=== PATIENT | male | born 1980 | race Hispanic/Latino ===

== ENCOUNTER 2020-07-08 12:12 | Emergency (ER) | payer BC, SELFPAY ==
[2020-07-08] VITALS (10 sets, daily range): BP systolic 150–160; BP diastolic 92–111; PULSE 80–95; RESP 17–27; TEMP 36.1; O2SAT 97–100
--- NOTE | ~2020-07-08 | XR_ITS ---
EXAMINATION: XR chest 2V DATE: 07/08/2020 12:45 INDICATION: Chest pain. TECHNIQUE: Frontal and lateral views of the chest were obtained. COMPARISON: None. FINDINGS: The chest demonstrates clear lungs without pneumonia, pleural effusion, or pneumothorax. Th e heart size is normal. IMPRESSION: 1. No acute cardiopulmonary disease. Reviewed, dictated and finalized at location A.
--- NOTE | 2020-07-08 12:27 | ECG_ITS ---
Measurements Intervals [place] Rate: 97 P: 27 DE: 150 QRS: 63 QRSD: 115 T: -3 QT: 324 QTc: 413 Interpretive Statements SINUS RHYTHM DELAYED PRECORDIAL R/S TRANSITION CONSIDER INFERIOR INFARCT, AGE INDETERMINATE BASELINE WANDER- I, II ABNORMAL ECG Electronically Signed On 07-08-2020 12:38:28 CDT by Jacky Pinon D.O.
[2020-07-08] MEDS: ASPIRIN 81 MG CHEWABLE TABLET 324 MG PO (12:41)
[2020-07-08 12:46] LABS: Basophils Percent Auto 0.3 % (0.2-1.2); Eosinophils Percent Auto 0.1 % (0-4.4); Hematocrit 51.1 % (42.0-52.0); Hemoglobin 18.5 g/dL (14.0-18.0); Immature Granulocyte Absolute 0.06 K/mm3 (0.00-0.031); Immature Granulocyte Percent A 0.4 % (0-0.5); Lymphocytes Percent Auto 15.5 % (18.3-44.2); Mean Corpuscular HGB Conc 36.2 g/dl (32-36); Mean Corpuscular Hemoglobin 31.8 pg (26-34); Mean Corpuscular Volume 87.8 fl (80-100); Mean Platelet Volume 11.1 fl (7.4-10.4); Monocytes Percent Auto 6.9 % (2.6-8.5); Neutrophils Absolute Auto 10.9 K/mm3 (1.3-6.7); Neutrophils Percent Auto 76.8 % (45.5-73.1); Platelet Count Result 284 k/mm3 (150-375); Red Blood Count 5.82 M/mm3 (4.6-6.20); Red Cell Distribution Width 11.9 % (11.5-14.5); White Blood Count 14.2 K/mm3 (4.5-10.0)
[2020-07-08 12:55] LABS: Prothrombin Time 12.8 Seconds (11.1-14.7)
[2020-07-08 12:56] LABS: Partial Thromboplastin Time 29.4 SECONDS (22.3-36.8)
[2020-07-08 12:58] LABS: Anion Gap 12 mmol/L (8-16); Blood Urea Nitrogen 16 mg/dL (9-20); Calcium 9.7 mg/dL (8.4-10.2); Carbon Dioxide 25 mmol/L (22-30); Chloride 96 mmol/L (98-107); Estimated CRCL calculation 662 ml/min; Estimated Glomerular Filt Rate > 60; Glucose 115 mg/dL (75-110); Potassium 3.5 mmol/L (3.4-5.0); Sodium 133 mmol/L (137-145)
[2020-07-08 13:10] LABS: Troponin I < 0.012 ng/mL (0.000-0.034)
--- NOTE | 2020-07-08 14:34 | ED.GENADULT ---
HPI - General Adult General Chief complaint: Chest Pain Stated complaint: weak Time Seen by Provider: 07/08/20 12:35 Source: patient and family Mode of arrival: ambulatory Limitations: no limitations History of Present Illness HPI narrative: 40-year-old male Generally in good health Reports that 2 nights ago he had a pain in his left back and chest when he went to bed but it was gone by the morning However later in the day yesterday he started having muscle aches fatigue chills and a subjective fever Really no cough, no shortness of breath, has some nausea but no abdominal pain and no diarrhea, and no urinary symptoms Related Data Home Medications Medication Instructions Recorded Confirmed chlorthalidone 07/08/20 methylprednisolone mg 07/08/20 07/08/20 Allergies Allergy/AdvReac Type Severity Reaction Status Date / Time No Known Allergies Allergy Verified 07/08/20 12:27 Review of Systems Review of Systems: All systems reviewed & are unremarkable except as noted in HPI and below Constitutional: Constitutional: Reports chills, Reports fatigue, Reports fever(s), Denies headache(s) and Reports weakness Eyes: Eyes: Denies change in vision and Denies other visual disturbances ENT: Denies headache(s), Denies epistaxis, Denies nasal congestion and Denies sore throat Cardiovascular: Cardiovascular: Denies chest pain, Denies leg edema, Denies palpitations and Denies dyspnea Respiratory: Respiratory: Reports cough, Denies dyspnea and Denies wheezing Gastrointestinal: Gastrointestinal: Denies abdominal pain, Denies diarrhea, Reports nausea and Denies vomiting Genitourinary: Genitourinary: Denies hematuria, Denies dysuria and Denies urinary frequency Musculoskeletal: Musculoskeletal: Reports myalgias, Denies deformity, Denies arthralgias, Denies joint swelling, Denies muscle weakness and Denies numbness Integumentary/Breasts: Skin/Breast: Denies rash, Denies unusual bruising and Denies wounds Neurologic: Denies Abnormal speech present, Denies headache(s), Denies focal weakness, Denies numbness and Reports weakness Psychiatric: Psychiatric: Reports no additional psychiatric complaints Endocrine: Endocrine: Reports fatigue and Denies palpitations Hematologic/Lymphatic: Hematologic/Lymphatic: Denies easy bleeding and Denies easy bruising Allergic/Immunologic: Allergic/Immunologic: Denies wheezing Exam Const: General: no acute distress, well developed and awake Nutritional Appearance: well nourished Orientation/consciousness: patient oriented x3 (alert) Limitations: no limitations HENMT: Head: normocephalic and atraumatic Ears: external ears normal General nose exam: No nasal discharge present and no epistaxis Face and sinus: face symmetric Mouth: Yes Normal oral and palatal mucosa present and Yes moist mucous membranes Eyes: Conjunctivae: conjunctivae normal Sclera: sclerae normal EOM: EOMs intact bilaterally Neck: Neck: normal visual inspection, no lymphadenopathy, no meningeal signs, supple and no JVD Chest: Chest palpation & inspection: deferred Resp: Effort & Inspection: normal respiratory effort Auscultation: clear to auscultation bilaterally, no rales, no rhonchi, no wheezes and other (BS =) Cardio: Rate: regular rate Rhythm: regular rhythm Heart sounds: no gallops and no murmurs GI: Inspection: normal to inspection and non-distended GI Palp: Yes Soft to palpation, No Tenderness to palpation present (GI) and No Guarding due to palpation present (GI) : General: Yes no CVA tenderness Back/Spine/Pelvis: Back: no CVA tenderness Thoracic/Lumbar Spine: thoracic and lumbar spine normal to inspection Skin: General skin exam: normal color and no rashes or lesions noted Neuro: General: patient oriented x3 (alert), moves all extremities and no focal motor deficits Cranial nerves: Yes facial symmetry Speech: normal speech and No Abnormal speech present Motor exam (neuro): Motor abnormalities not
[2020-07-09 12:44] LABS: SARS-CoV-2 RNA PCR Negative
== END 2020-07-08 15:14 | disposition home or self-care (01) ==
PROVIDERS: Emergency Provider Emergency Medicine
DX: U07.1 COVID-19 (principal)
CPT/HCPCS: 36415; 71046; 80048; 84484; 85025; 85610; 85730; 87635; 93005; 99284; A9270; C9803; U0003

== ENCOUNTER 2021-01-14 07:09 | Emergency (ER) | payer BC, SELFPAY ==
--- NOTE | ~2021-01-14 | XR_ITS ---
EXAMINATION: XR foot LT 2V EXAM DATE: 01/14/2021 08:14 INDICATION: pain base 5th mt Lt foot, twisted foot last p.m. . Initial encounter. TECHNIQUE: Frontal and lateral projections of the left foot. There is no prior study for comparison . FINDINGS: There are no acute left foot fractures or dislocations identified. There is no subcutaneou s gas. The soft tissue is unremarkable. There are no radiopaque foreign bodies. IMPRESSION: 1. XR foot LT 2V exam without acute osseous findings. Reviewed, dictated and finalized at location D.
--- NOTE | ~2021-01-14 | XR_ITS ---
EXAMINATION: XR ankle LT min 3V DATE: 01/14/2021 07:51 INDICATION: Left ankle pain TECHNIQUE: Anteroposterior, lateral, mortise, and additional oblique view of the ankle were obtained. COMPARISON: None. FINDINGS: There is no fracture, dislocation, or subluxation. The bones, soft tissues, and joint space s are normal. IMPRESSION: 1. No acute osseous abnormality. Reviewed, dictated and finalized at location A.
[2021-01-14 07:13] VITALS: BP 144/99; PULSE 77; RESP 18; TEMP 36.4; O2SAT 97
[2021-01-14] MEDS: IBUPROFEN 400 MG TABLET 800 MG PO (08:54)
--- NOTE | 2021-01-14 08:55 | ED.LOWEXIN ---
HPI - Extremity Injury (Lower) General Chief Complaint: Extremity Injury, Lower Stated Complaint: Left Ankle Injury Time Seen by Provider: 01/14/21 07:17 Source: patient Mode of arrival: ambulatory Limitations: no limitations History of Present Illness HPI Narrative: 40-year-old male Here for evaluation of a left ankle injury He was coming down steps at his house this morning and stepped on his daughter's shoe which had been left at the bottom of the stairs and inverted his left ankle He felt like it popped There is pain, mild swelling, but he is able to bear weight and ambulate Nothing else injured Related Data Home Medications Medication Instructions Recorded Confirmed chlorthalidone 07/08/20 methylprednisolone mg 07/08/20 07/08/20 Allergies Allergy/AdvReac Type Severity Reaction Status Date / Time No Known Allergies Allergy Verified 01/14/21 07:17 Review of Systems Musculoskeletal: Musculoskeletal: Denies back pain, Reports arthralgias and Reports joint swelling Neurologic: Denies numbness and Denies weakness Exam Const: General: healthy appearing, no acute distress and alert Orientation/consciousness: patient oriented x3 HENMT: Head: normal to inspection Eyes: Conjunctivae: conjunctivae normal EOM: EOMs intact bilaterally Resp: Effort & Inspection: normal respiratory effort and not labored Skin: General skin exam: normal color Neuro: General: patient oriented x3 Speech: normal speech Extrem: Other: Left ankle with very mild swelling laterally, no tenderness around the distal fibula either anteriorly or posteriorly, only tenderness is localized to the base of the fifth metatarsal Course Vital Signs Vital signs: Vital Signs Temperature 36.4 C L 01/14/21 07:13 Pulse Rate 77 01/14/21 07:13 Respiratory Rate 18 01/14/21 07:13 Blood Pressure 144/99 H 01/14/21 07:13 Pulse Oximetry 97 01/14/21 07:13 Temperature 36.4 C L 01/14/21 07:13 Pulse Rate 77 01/14/21 07:13 Respiratory Rate 18 01/14/21 07:13 Blood Pressure 144/99 H 01/14/21 07:13 Pulse Oximetry 97 01/14/21 07:13 MDM - Extremity Injury (Lower) Imaging Data Radiologist's impression: ITS Impressions Ankle X-Ray 01/14/21 07:52 IMPRESSION: 1. No acute osseous abnormality. Foot X-Ray 01/14/21 08:16 IMPRESSION: 1. XR foot LT 2V exam without acute osseous findings. Discharge Plan Discharge Clinical Impression: Ankle sprain and strain Patient Disposition: Home, Self-Care Condition: Stable Instructions: Ankle Sprain (ED) Additional Instructions: If you are going to participate in competitive sports you should wear a sturdy lace up type of ankle brace for the next 2 months Otherwise apply ice three or four times a day, [id number] Advil or Aleve, and you can do activities as tolerated Prescriptions: No Action chlorthalidone 25 mg tablet RF: 0 methylprednisolone 4 mg tablets,dose pack RF: 0 azithromycin [Zithromax Z-Tamir] 250 mg tablet See Rx Instructions .ROUTE .COMPLEX Qty: 6 RF: 0 albuterol sulfate 90 mcg/actuation HFA aerosol inhaler 4 puff inhalation QID PRN (Reason: shortness of breath or wheezing) Qty: 8.5 RF: 0 Follow-up/Referrals: Esvin,Thomas Groves MD [Primary Care Provider] -
== END 2021-01-14 09:08 | disposition home or self-care (01) ==
PROVIDERS: Emergency Provider Emergency Medicine
DX: S96.912A Strain of unspecified muscle and tendon at ankle and foot level, left foot, initial encounter (principal); S93.402A Sprain of unspecified ligament of left ankle, initial encounter; X50.9XXA Other and unspecified overexertion or strenuous movements or postures, initial encounter
CPT/HCPCS: 73610; 73620; 99283; A9270

== ENCOUNTER → 2021-09-12 08:07 | Outpatient (CLI) | payer BC, SELFPAY ==
[2021-09-13 13:55] LABS: SARS-CoV-2 RNA PCR Positive
== END ==
PROVIDERS: PCP Family Medicine; Visit Provider Family Medicine
DX: U07.1 COVID-19 (principal); J02.9 Acute pharyngitis, unspecified
CPT/HCPCS: C9803; U0003; U0005

== ENCOUNTER 2022-07-01 09:40 | Emergency (ER) | payer BC, SELFPAY ==
--- NOTE | ~2022-07-01 | CT_ITS ---
EXAMINATION: CT abdomen pelvis w con INDICATION: Nausea and fever TECHNIQUE: Computed tomographic images of the abdomen and pelvis were obtained after the administrati on of 100 cc of Omnipaque 350 intravenous contrast. The dose-length product (DLP) was 875.56 mGy-cm. Automated exposure control and iterative reconstruction technique were employed. COMPARISON: None available FINDINGS: The lung bases are clear. The heart size is normal. The liver, spleen, pancreas, gallbladde r, and adrenal glands are normal. There is a 1 mm nonobstructing stone of the left kidney. Hypoattenu ating lesions in the kidneys, measuring up to 5 mm on the left, are too small to characterize but lik chris represent cysts. No pathologically enlarged abdominal or pelvic lymph nodes are identified. The a ppendix is normal. There are fat-containing umbilical and bilateral extrarenal hernias. IMPRESSION: 1. No CT correlate for the patient's symptoms. Reviewed, dictated and finalized at location A.
--- NOTE | ~2022-07-01 | XR_ITS ---
EXAMINATION: XR chest 2V DATE: 07/01/2022 10:31 INDICATION: Cough and fever TECHNIQUE: Frontal and lateral views of the chest are obtained COMPARISON: 07/08/2020 FINDINGS: The lungs are free of acute opacities. No pleural effusion or pneumothorax. The cardiomedia stinal silhouette is normal. There is mild thoracic spondylosis. IMPRESSION: 1. No acute cardiopulmonary abnormality. Reviewed, dictated and finalized at location A.
[2022-07-01 09:51] VITALS: BP 137/97; PULSE 92; RESP 14; TEMP 36.9; O2SAT 99
--- NOTE | 2022-07-01 10:24 | ED.FEVER ---
HPI - Fever General Chief Complaint: Fever Stated Complaint: Multiple Complaints Time Seen by Provider: 07/01/22 09:45 History of Present Illness HPI Narrative: Patient is a 42-year-old male with history of hypertension here for evaluation of generalized weakness, body aches, chills, and cough for the past 3 days. Patient's is sick with pneumonia, symptoms came on shortly after he was diagnosed. He has not taken a COVID test. He has been taking ibuprofen [id number] with transient relief of his symptoms. States that he came in today because of the longevity of the symptoms in addition to developing lower abdominal pain and nausea. States that he has not had much to eat or drink over the past 3 days due to low appetite. Patient has not taken his temperature. He is not immunocompromised. Related Data Home Medications Medication Instructions Recorded Confirmed chlorthalidone 25 mg tablet 07/08/20 methylprednisolone 4 mg tablets in mg 07/08/20 07/08/20 a dose pack Allergies Allergy/AdvReac Type Severity Reaction Status Date / Time No Known Allergies Allergy Verified 01/14/21 07:17 Review of Systems Review of Systems: Gen: Reports chills and body aches Eyes: Denies eye pain or visual change ENT: Denies congestion Respiratory: Denies shortness of breath or cough CV: Denies chest pain or palpitations GI: Reports nausea and low appetite. Denies emesis or diarrhea denies burning, urgency, frequency or hematuria Musculoskeletal: Reports body aches. Neuro: Denies numbness, tingling, weakness or focal weakness Skin: Denies rash Except as documented, all other systems reviewed and negative Exam Narrative: APPEARANCE: Uncomfortable appearing. Head: Normocephalic and atraumatic. EYES: PERRLA/EOMI, conjunctivae clear NOSE: No nasal drainage EARS: External ear normal in appearance THROAT: Oropharynx is clear. Mucous membranes are moist. NECK: Supple. No adenopathy, no masses. RESPIRATORY: Crackles in the right lung base. Airway patent, respirations nonlabored. CARDIOVASCULAR: Regular rate and rhythm without murmurs, rubs, or gallops. ABDOMINAL: Normoactive bowel sounds. Soft, nontender, nondistended. No rebound tenderness or guarding. MUSCULOSKELETAL: Extremities are warm and well-perfused. Moves all extremities well. No edema. NEURO: Normal speech. No focal neurologic deficits. SKIN: Skin is warm and dry. No rashes. PSYCHIATRIC: Normal affect/mood. Course Vital Signs Vital signs: Vital Signs Temperature 98.4 F 07/01/22 09:51 Pulse Rate 92 07/01/22 09:51 Respiratory Rate 14 07/01/22 09:51 Blood Pressure 137/97 H 07/01/22 09:51 Pulse Oximetry 99 07/01/22 09:51 Temperature 98.4 F 07/01/22 09:51 Pulse Rate 90 07/01/22 13:26 Respiratory Rate 19 07/01/22 13:26 Blood Pressure 137/97 H 07/01/22 13:26 Pulse Oximetry 97 07/01/22 13:26 MDM - Fever MDM Narrative Medical decision making narrative: 42-year-old male here for evaluation of myalgias, chills, cough and fatigue over the past several days. Positive sick contacts. Here he is uncomfortable appearing but his vital signs are normal. Work-up in the ED significant for leukocytosis to 15.5 and potassium of 2.8. No EKG changes; normal mag. Low potassium likely due to decreased p.o. intake over the past several days. Repleted in the ED. his COVID and flu test are negative. Obtained an abdomen pelvis CT given abd pain and nausea, which did not have any acute findings. Chest x-ray without acute findings, although patient does have crackles on lung exam. Feel pneumonia may be explaining patient's symptoms. He will be discharged with antibiotics to cover for bacterial pneumonia. Does not meet SIRS or sepsis criteria, stable for discharge at this time. He was given return precautions and he voiced understanding. Lab Data Result diagrams: 07/01/22 10:40 07/01/22 10:40 Labs: Lab Re
[2022-07-01] MEDS: ACETAMINOPHEN 500 MG TABLET 1000 MG PO (10:39)
[2022-07-01] MEDS: ONDANSETRON HCL ODT 4 MG TABLET PO (10:40)
[2022-07-01 10:47] LABS: Basophils Percent Auto 0.3 % (0.2-1.2); Eosinophils Percent Auto 0.1 % (0-4.4); Hematocrit 46.7 % (42.0-52.0); Hemoglobin 16.7 g/dL (14.0-18.0); Immature Granulocyte Absolute 0.05 K/mm3 (0.00-0.031); Immature Granulocyte Percent A 0.3 % (0-0.5); Lymphocytes Absolute Auto 1.96 K/mm3 (0.9-3.2); Lymphocytes Percent Auto 12.6 % (18.3-44.2); Mean Corpuscular HGB Conc 35.8 g/dl (32-36); Mean Corpuscular Hemoglobin 31.7 pg (26-34); Mean Corpuscular Volume 88.6 fl (80-100); Mean Platelet Volume 10.7 fl (7.4-10.4); Monocytes Absolute Auto 1.3 K/mm3 (0.1-0.6); Monocytes Percent Auto 8.1 % (2.6-8.5); Neutrophils Absolute Auto 12.2 K/mm3 (1.3-6.7); Neutrophils Percent Auto 78.6 % (45.5-73.1); Platelet Count Result 209 k/mm3 (150-375); Red Blood Count 5.27 M/mm3 (4.6-6.20); Red Cell Distribution Width 12.3 % (11.5-14.5); White Blood Count 15.5 K/mm3 (4.5-10.0)
[2022-07-01 11:02] LABS: Alanine Aminotransferase 48 U/L (6-50); Albumin Level 4.5 g/dL (3.5-5.1); Alkaline Phosphatase 85 U/L (38-126); Anion Gap 14 mmol/L (8-16); Aspartate Amino Transferase 30 U/L (17-59); Bilirubin,Total 1.4 mg/dL (0.2-1.3); Blood Urea Nitrogen 11 mg/dL (9-20); Calcium 9.1 mg/dL (8.4-10.2); Carbon Dioxide 29 mmol/L (22-30); Chloride 94 mmol/L (98-107); Estimated CRCL calculation 116 ml/min; Estimated Glomerular Filt Rate > 60; Glucose 119 mg/dL (65-110); Lipase 91 U/L (23-300); Potassium 2.8 mmol/L (3.4-5.0); Sodium 137 mmol/L (137-145)
--- NOTE | 2022-07-01 11:04 | ECG_ITS ---
Measurements Intervals [place] Rate: 91 P: 17 MA: 141 QRS: 41 QRSD: 138 T: 0 QT: 338 QTc: 417 Interpretive Statements SINUS RHYTHM INTRAVENTRICULAR CONDUCTION DELAY [130+ ms QRS DURATION] COMPARED TO ECG 07/08/2020 12:33:45, NO SIGNIFICANT CHANGE Electronically Signed On 07-01-2022 18:49:52 CDT by Carolina Miguel M.D.
[2022-07-01 11:19] LABS: Magnesium 2.2 mg/dL (1.6-2.3)
[2022-07-01 11:23] LABS: Influenza A QL RT-PCR Negative (Negative); Influenza B QL RT-PCR Negative (Negative); SARS-CoV-2 RNA PCR Negative
[2022-07-01] MEDS: POTASSIUM CHLORIDE 20 MEQ TABLET 40 MEQ PO (11:48)
[2022-07-01 13:26] VITALS: BP 137/97; PULSE 90; RESP 19; O2SAT 97
== END 2022-07-01 13:27 | disposition home or self-care (01) ==
PROVIDERS: Physician Assistant; Emergency Provider Emergency Medicine; PCP Family Medicine
DX: J18.9 Pneumonia, unspecified organism (principal); Z20.822 Contact with and (suspected) exposure to COVID-19; I45.9 Conduction disorder, unspecified
CPT/HCPCS: 36415; 71046; 74177; 80053; 83690; 83735; 85025; 87502; 93005; 99284; A9270; C9803; Q9967; U0003; U0005

== ENCOUNTER 2022-07-24 04:49 | Emergency (ER) | payer BC, SELFPAY ==
--- NOTE | ~2022-07-24 | CT_ITS ---
EXAMINATION: CT abdomen pelvis w con DATE: 07/24/2022 07:44 INDICATION: Low abdominal pain. TECHNIQUE: Computed tomography (CT) of the abdomen and pelvis was performed with 100 mL Omnipaque 350 intravenous contrast. Automated exposure control and iterative reconstruction technique were employe d. The dose-length product was 911.66 mGy-cm. COMPARISON: CT abdomen and pelvis 07/01/2022 FINDINGS: The visualized portions of the lung bases are clear without pneumonia or pleural effusion. The heart size is normal. No pericardial effusion. The liver, gallbladder, spleen, pancreas, adrenal glands, and kidneys are normal. There is diverticulosis of the colon without evidence of diverticulit is. The appendix is normal. There are no dilated loops of bowel. There are no pathologically enlarged lymph nodes. There is no free intraperitoneal fluid. There is mild thoracal lumbar spondylosis. IMPRESSION: 1. No etiology for the patient's symptoms. Reviewed, dictated and finalized at location A. ING MACHINE OPERATOR HELPER
[2022-07-24 04:59] VITALS: BP 133/86; PULSE 81; RESP 13; TEMP 36.3; O2SAT 100
--- NOTE | 2022-07-24 05:23 | ECG_ITS ---
Measurements Intervals [place] Rate: 62 P: 22 ND: 138 QRS: 43 QRSD: 118 T: 14 QT: 363 QTc: 369 Interpretive Statements SINUS RHYTHM MINIMAL Q WAVES- INFERIOR LEADS BASELINE ARTIFACT- I, II, AVR, AVF BORDERLINE ECG COMPARED TO ECG 07/01/2022 11:30:51 NO SIGNIFICANT CHANGES Electronically Signed On 07-24-2022 6:36:58 ADMINISTRATIVE PROFESSIONAL by Jacky Pinon D.O.
--- NOTE | 2022-07-24 05:33 | ED.ABDPAIN ---
HPI - Abdominal Pain General Chief Complaint: Abdominal Pain <Jeanne Tovar MD - Last Filed: 07/24/22 08:53> Stated Complaint: Upper back/chest pain <Jeanne Tovar MD - Last Filed: 07/24/22 08:53> Time Seen by Provider: 07/24/22 05:09 <Jeanne Tovar MD - Last Filed: 07/24/22 08:53> Source: patient and RN notes reviewed <Jeanne Tovar MD - Last Filed: 07/24/22 08:53> Mode of arrival: ambulatory <Jeanne Tovar MD - Last Filed: 07/24/22 08:53> Limitations: no limitations <Jeanne Tovar MD - Last Filed: 07/24/22 08:53> History of Present Illness HPI narrative: This is a 42 year male who presents for evaluation of mid back pain and upper abdominal pain. He states this morning he developed mid back pain and later noticed upper abdominal pain when he started stretching. He describes his abdominal pain as bloating . He denies associated nausea, vomiting, chest pain, sob, or fever/chills. He does admit to drinking 8-10 [place] on sunday night. He denies history of pancreatitis. He rates his pain 03/19. <Jeanne Tovar MD - Last Filed: 07/24/22 08:53> Related Data Home Medications: Home Medications Medication Instructions Recorded Confirmed chlorthalidone 25 mg tablet 07/08/20 methylprednisolone 4 mg tablets in mg 07/08/20 07/08/20 a dose pack <Jeanne Tovar MD - Last Filed: 07/24/22 08:53> Allergies/Adverse Reactions: Allergies Allergy/AdvReac Type Severity Reaction Status Date / Time No Known Allergies Allergy Verified 07/24/22 05:05 <Jeanne Tovar MD - Last Filed: 07/24/22 08:53> Review of Systems Review of Systems: All systems reviewed & are unremarkable except as noted in HPI and below <Jeanne Tovar MD - Last Filed: 07/24/22 08:53> PMFSH Past Medical History Medical History: Medical History (Updated 07/24/22 @ 09:01 by Fortunato Farrell DO) Hypertension <Jeanne Tovar MD - Last Filed: 07/24/22 08:53> Surgical History Surgical History: Surgical History (Updated 07/24/22 @ 05:59 by Jeanne Tovar MD) No pertinent past surgical history <Jeanne Tovar MD - Last Filed: 07/24/22 08:53> Social History Social History: Social History (Updated 07/24/22 @ 05:59 by Jeanne Tovar MD) Alcohol intake: current <Jeanne Tovar MD - Last Filed: 07/24/22 08:53> Exam Const: General: no acute distress and alert <Jeanne Tovar MD - Last Filed: 07/24/22 08:53> Nutritional Appearance: well nourished <Jeanne Tovar MD - Last Filed: 07/24/22 08:53> Orientation/consciousness: patient oriented x3 <Jeanne Tovar MD - Last Filed: 07/24/22 08:53> HENMT: Head: normal to inspection <Jeanne Tovar MD - Last Filed: 07/24/22 08:53> Eyes: EOM: EOMs intact bilaterally <Jeanne Tovar MD - Last Filed: 07/24/22 08:53> Resp: Auscultation: clear to auscultation bilaterally <Jeanne Tovar MD - Last Filed: 07/24/22 08:53> Cardio: Rate: regular rate <Jeanne Tovar MD - Last Filed: 07/24/22 08:53> Rhythm: regular rhythm <Jeanne Tovar MD - Last Filed: 07/24/22 08:53> Heart sounds: no murmurs <Jeanne Tovar MD - Last Filed: 07/24/22 08:53> GI: GI Palp: Yes Soft to palpation, Yes Tenderness to palpation present (GI) (epigastric), No Guarding due to palpation present (GI) and No Rigid due to palpation <Jeanne Tovar MD - Last Filed: 07/24/22 08:53> Auscultation: normal bowel sounds <Jeanne Tovar MD - Last Filed: 07/24/22 08:53> Skin: General skin exam: normal color <Jeanne Tovar MD - Last Filed: 07/24/22 08:53> Rashes: no rashes <Jeanne Tovar MD - Last Filed: 07/24/22 08:53> Neuro: General: patient oriented x3, moves all extremities and CN's II-XI intact bilaterally <Jeanne Tovar MD - Last Filed: 07/24/22 08:53> Extrem: General: normal to inspection <Jeanne Tovar MD - Last Filed: 07/24/22 08:53> Psych: Mental S
[2022-07-24] MEDS: SODIUM CHLORIDE 0.9% IV 1,000 ML 999 ML IV CONT (05:43)
[2022-07-24] MEDS: ONDANSETRON INJ 4 MG/2 ML VIAL IV PUSH (05:44)
[2022-07-24 06:25] LABS: Basophils Percent Auto 0.4 % (0.2-1.2); Eosinophils Absolute Auto 0.1 K/mm3 (0-0.3); Eosinophils Percent Auto 1.5 % (0-4.4); Hematocrit 44.8 % (42.0-52.0); Hemoglobin 15.8 g/dL (14.0-18.0); Immature Granulocyte Absolute 0.03 K/mm3 (0.00-0.031); Immature Granulocyte Percent A 0.3 % (0-0.5); Lymphocytes Absolute Auto 2.13 K/mm3 (0.9-3.2); Lymphocytes Percent Auto 22.6 % (18.3-44.2); Mean Corpuscular HGB Conc 35.3 g/dl (32-36); Mean Corpuscular Volume 90.7 fl (80-100); Mean Platelet Volume 10.7 fl (7.4-10.4); Monocytes Absolute Auto 0.6 K/mm3 (0.1-0.6); Monocytes Percent Auto 6.7 % (2.6-8.5); Neutrophils Absolute Auto 6.5 K/mm3 (1.3-6.7); Neutrophils Percent Auto 68.5 % (45.5-73.1); Platelet Count Result 228 k/mm3 (150-375); Red Blood Count 4.94 M/mm3 (4.6-6.20); Red Cell Distribution Width 12.7 % (11.5-14.5); White Blood Count 9.4 K/mm3 (4.5-10.0)
[2022-07-24 06:40] LABS: Alanine Aminotransferase 67 U/L (6-50); Alkaline Phosphatase 115 U/L (38-126); Anion Gap 8 mmol/L (8-16); Aspartate Amino Transferase 42 U/L (17-59); Bilirubin,Total 0.5 mg/dL (0.2-1.3); Blood Urea Nitrogen 8 mg/dL (9-20); Calcium 8.4 mg/dL (8.4-10.2); Carbon Dioxide 22 mmol/L (22-30); Chloride 106 mmol/L (98-107); Estimated CRCL calculation 128 ml/min; Estimated Glomerular Filt Rate > 60; Glucose 102 mg/dL (65-110); Lipase 204 U/L (23-300); Potassium 3.8 mmol/L (3.4-5.0); Sodium 136 mmol/L (137-145)
[2022-07-24 06:54] LABS: Appearance Urine Clear (Clear); Bilirubin Urine Negative (Negative); Blood Urine Negative (Negative); Color Urine Yellow (Yellow); Glucose Urine UA Negative (Negative); Ketones Urine Negative (Negative); Leukocyte Esterase Ur Negative LEU/UL (Negative); Nitrate Urine Negative (Negative); Protein Urine Negative (Negative); Specific Grav Ur 1.015 (1.001-1.035); Urobilinogen Urine 0.2 mg/dL (<2.0)
[2022-07-24 06:58] LABS: Squamous Epithelial Cell Urine Rare /hpf (Few); WBC Urine 0-3 /hpf
[2022-07-24 06:59] LABS: Add Urine Microscopic? YES
[2022-07-24 07:57] LABS: Troponin I < 0.012 ng/mL (0.000-0.034)
== END 2022-07-24 09:19 | disposition home or self-care (01) ==
PROVIDERS: Emergency Provider General Practice; PCP Family Medicine
DX: M54.6 Pain in thoracic spine (principal); R10.12 Left upper quadrant pain; I10 Essential (primary) hypertension; R94.31 Abnormal electrocardiogram [ECG] [EKG]
CPT/HCPCS: 36415; 74177; 80053; 81001; 83690; 84484; 85025; 93005; 96361; 96374; 99284; J2405; J7030; Q9967

== ENCOUNTER 2023-02-28 08:54 | Outpatient (CLI) | payer BC, SELFPAY ==
--- NOTE | ~2023-02-28 | US_ITS ---
Abdominal Sonogram: Real-time sonographic imaging of the abdomen was performed. Clinical History: Abnormal serum enzyme levels Findings: The liver appears echogenic, with no evidence of mass lesion or bile duct dilatation. Main portal vein demonstrates normal direction of flow. The spleen is normal in size without evidence of focal lesion. The gallbladder is well distended, and appears normal with no evidence of gallstone or wall thickening. The common bile duct measures 4 mm. The visualized pancreas, aorta, and IVC are un remarkable. The right kidney measures 11.0 cm in length and the left kidney measures 10.7 cm. There is no hydronephrosis or renal calculus. Impression: Diffuse fatty infiltration of the liver. Reviewed, dictated and finalized at location M. Impression: Diffuse fatty infiltration of the liver.
== END 2023-02-28 08:55 | disposition home or self-care (01) ==
PROVIDERS: PCP Family Medicine; Visit Provider Physician Assistant
DX: R74.8 Abnormal levels of other serum enzymes (principal); K76.0 Fatty (change of) liver, not elsewhere classified
CPT/HCPCS: 76700

== ENCOUNTER 2024-07-24 16:23 | Emergency (ER) | payer BC, SELFPAY ==
--- NOTE | 2024-07-24 17:14 | PC.NURSE ---
Pt did not answer for complete triage assessment and VS x 2. Pt was not seen exiting ER, did not notify anyone he declined to be seen.
== END 2024-07-24 18:35 | disposition left against medical advice (07) ==
LOC: ANHED 17:37
PROVIDERS: PCP Family Medicine
DX: R11.2 Nausea with vomiting, unspecified (principal)
CPT/HCPCS: 99199

== ENCOUNTER 2024-12-22 18:10 | Observation (INO) | payer OTHER, SELFPAY ==
[2024-12-22] VITALS (12 sets, daily range): BP systolic 111–136; BP diastolic 58–95; PULSE 52–103; RESP 14–24; TEMP 36.1–36.7; O2SAT 95–100; BMI 34.0
--- NOTE | 2024-12-22 13:52 | ECG_ITS ---
Test Date: 2024-12-22 14:03:35 Measurements Intervals [place] Rate: 84 P: 26 [place]: 146 QRS: 53 QRSD: 106 T: 3 QT: 347 QTc: 411 Interpretive Statements SINUS RHYTHM CONSIDER INFERIOR INFARCT, AGE INDETERMINATE BASELINE ARTIFACT- I, II, V1 ABNORMAL ECG No previous ECG available for comparison Electronically Signed On 12-22-2024 14:09:23 CDT by Jacky Pinon D.O.
[2024-12-22] MEDS: LACTATED RINGERS 1,000 ML 30 ML IV CONT (14:30)
--- NOTE | 2024-12-22 14:42 | WPDHPUPDATE1 ---
History and Physical Update Update Date/Time: 12/22/24 14:42 History and Physical has been reviewed, including an updated exam of the patient. There are NO changes in the patient's condition. Risks, benefits, and alternatives have been discussed and questions answered. Patient agrees to proceed with procedure.
--- OUTSIDE RECORDS SUMMARY | 2024-12-22 14:52 | XMS_ITS | Clinical Summary ---
Author Organization [facility] Address [address] [place] [address] Care Team Providers Care Pie Bottomer Name Role Phone Kwame Ragland MD Primary Care Provider [phone] [facility],non-owned Affiliates and Associated Physician Practices is amultiple site organization consisting of ambulatory clinics and hospital sitesin [place], [place], [place] and [place]. This disclosure is being madepursuant to the Care Everywhere program and may not contain all information available regarding this patient. Last updated 18.[facility] [employer] Allergies Active Allergy Reactions Criticality Noted Date Comments Shellfish Allergy Swelling 07/02/2018 Only blue crab Medications * Be aware that medications may not be up to date on this document. Alwaysverify current medications with the patient. benzonatate (TESSALON) 100 MG capsule Take 1 capsule by mouth 3 times daily as needed for Cough 30 capsule 01/15/2019 Active albuterol HFA (PROVENTIL;VENT TRAY;PROAIR) 108 (90 Base) MCG/ACT inhaler Inhale 2 puffs by mouth every 6 hours as needed 3 Inhaler 3 01/15/2019 Active Social History Tobacco Use Types Packs/Day Years Used Date Smoking Tobacco: Never Assessed Sex and Gender Information Value Date Recorded Sex Assigned at Not on file Legal Sex Male 5:26 AM SALES AND RETAIL MANAGEMENT RECRUITER Gender Identity Not on file Sexual Orientation Not on file Last Filed Vital Signs Vital Sign Reading Time Taken Comments Blood Pressure 135/78 10/27/2019 9:49 AM SALES AND RETAIL MANAGEMENT RECRUITER Pulse 88 10/27/2019 9:49 AM SALES AND RETAIL MANAGEMENT RECRUITER Temperature 36.8 C (98.3 F) 10/27/2019 9:49 AM SALES AND RETAIL MANAGEMENT RECRUITER Respiratory Rate 18 10/27/2019 9:49 AM SALES AND RETAIL MANAGEMENT RECRUITER Oxygen Saturation 99% 10/27/2019 9:49 AM SALES AND RETAIL MANAGEMENT RECRUITER Inhaled Oxygen Concentration - - Weight 99.8 kg (220 lb) 01/15/2019 11:32 AM CDT Height 167.6 cm (5' 6 ) 01/15/2019 11:32 AM CDT Body Mass Index 35.51 01/15/2019 11:32 AM CDT Plan of Treatment Health Maintenance Due Date Last Done Comments LIPID TESTING 1980 HIV SCREENING 1995 HEPATITIS C SCREENING 06/25/1998 DTAP/TDAP/TD VACCINES (1 - Tdap) 1999 HEPATITIS B VACCINE (1 of 3 - 19+ 3-dose series) 1999 COVID-19 VACCINE ( - 2023-2 5 season) 2024 DEPRESSION SCREENING 09/10/2024 INFLUENZA VACCINE (Season Ended) 2025 ZOSTER VACCINE (1 of 2) 2030 HIB VACCINE Aged Out No longer eligi ble based on patient's age to complete this topic HPV VACCINE Aged Out No longer eligi ble based on patient's age to complete this topic MENINGOCOCCAL (Group B) VACC INE SHARED DECISION-MAKING Aged Out No longer eligibl e based on patient's age to complete this topic MENINGOCOCCAL GROUPS A/C/Y/W VACCINE Aged Out No longer eligible b ased on patient's age to complete this topic PNEUMOCOCCAL VACCINE Aged Out No long er eligible based on patient's age to complete this topic Insurance ANTHEM Care Teams Pie Bottomer Relationship Specialty Start Date End Date Kwame Ragland MD [address] [place] [address] PCP - General Internal Medicine 01/15/19
--- OUTSIDE RECORDS SUMMARY | 2024-12-22 14:52 | XMS_ITS | Clinical Summary ---
Author Organization [facility] Address [address] [place] [address] Care Team Providers Care Telegraphic Typewriter Repairer Name Role Phone Unavailable Primary Care Provider Unavailabl e Allergies Active Allergy Reactions Criticality Noted Date Comments Shellfish Allergy Swelling 07/02/2018 Only blue crab Medications chlorthalidone 25 MG tabletIndication s:Hypertension, unspecified type Take 1 tablet (25 mg total) by mouth daily. 30 tablet 07/14/2021 Active Active Problems Problem Noted Date Diagnosed Date Chronic right shoulder pain 07/02/2020 Shoulder impingement syndrome, right 07/02/2020 Hypertension, unspecified type 05/28/2020 Migraine without aura and wi thout status migrainosus, not intractable 05/28/2020 Anxiety 05/28/2020 Immunizations Immunization Administration Dates Next Due MMR 07/14/1992 Tdap (Adacel) 12/23/2015 Family History Medical History Relation Comments No Known Problems Father No Known Problems Mother Relation Status Comments Father Mother Social History Tobacco Use Types Packs/Day Years Used Date Smoking Tobacco: Never Smokeless Tobacco: Never Alcohol Use Standard Drinks/Week Comments Yes 0 (1 standard drink = 0.6 oz pur e alcohol) social Sex and Gender Information Value Date Recorded Sex Assigned at Not on file Legal Sex Male 10:34 AM CDT Gender Identity Not on file Sexual Orientation Not on file Last Filed Vital Signs Vital Sign Reading Time Taken Comments Blood Pressure 128/72 07/24/2024 8:27 PM PROPERTY INVESTOR Pulse 57 07/24/2024 8:27 PM PROPERTY INVESTOR Temperature 36.1 C (97 F) 07/24/2024 8:27 PM PROPERTY INVESTOR Respiratory Rate 18 07/24/2024 8:27 PM PROPERTY INVESTOR Oxygen Saturation 96% 07/24/2024 8:27 PM PROPERTY INVESTOR Inhaled Oxygen Concentration - - Weight 96.2 kg (212 lb 1.3 oz) 07/24/2024 5:34 P M PROPERTY INVESTOR Height 167.6 cm (5' 6 ) 07/24/2024 5:34 PM PROPERTY INVESTOR Body Mass Index 34.23 07/24/2024 5:34 PM PROPERTY INVESTOR Plan of Treatment Health Maintenance Due Date Last Done Comments Annual Physical 1983 Hepatitis C 1998 Hepatitis B Vaccines (1 of 3 - 19+ 3-dose series) 1999 COVID-19 Vaccine (2023-2 5 season) 2024 06/26/2021, 05/29/2021 DTaP, Tdap and Td Vaccines ( 2 - Td or Tdap) 12/22/2025 12/23/2015 HPV Vaccines Aged Out No longer eligi ble based on patient's age to complete this topic Meningococcal B Vaccine Aged Out No l onger eligible based on patient's age to complete this topic Meningococcal Vaccine Aged Out No elvia kaushik eligible based on patient's age to complete this topic Pneumococcal Vaccine: Pediatrics (0 to 5 Years) and At-Risk Patients (6 to 49 Years) Aged Out No longer eligible b ased on patient's age to complete this topic RSV Immunizations Under 20 Months Aged Out No longer eligible b ased on patient's age to complete this topic Insurance [facility]
--- OUTSIDE RECORDS SUMMARY | 2024-12-22 14:52 | XMS_ITS | CONTINUITY OF CARE DOCUMENT ---
Author Name abril samuels Address Unknown Organization [facility] Address [address] [place] [address] [address] [place] [address] Phone [phone] Care Team Providers Care Brake Rider Name Role Phone Kurt OLVERA, Pablo Unavailable [phone] Kwame Ragland MD Unavailable [phone] INSURANCE PROVIDERS Payer name Policy type / Coverage type [place] red republican ID [facility] [id number]
[2024-12-22 14:54] LABS: Basophils Percent Auto 0.3 % (0.2-1.2); Eosinophils Absolute Auto 0.1 K/mm3 (0-0.3); Eosinophils Percent Auto 0.6 % (0-4.4); Hemoglobin 17.5 g/dL (14.0-18.0); Immature Granulocyte Absolute 0.06 K/mm3 (0.00-0.031); Immature Granulocyte Percent A 0.4 % (0-0.5); Lymphocytes Absolute Auto 2.64 K/mm3 (0.9-3.2); Lymphocytes Percent Auto 18.8 % (18.3-44.2); Mean Corpuscular HGB Conc 35.7 g/dl (32-36); Mean Corpuscular Hemoglobin 31.1 pg (26-34); Mean Corpuscular Volume 87.2 fl (80-100); Mean Platelet Volume 10.3 fl (7.4-10.4); Monocytes Absolute Auto 1.3 K/mm3 (0.1-0.6); Monocytes Percent Auto 9.3 % (2.6-8.5); Neutrophils Absolute Auto 9.9 K/mm3 (1.3-6.7); Neutrophils Percent Auto 70.6 % (45.5-73.1); Platelet Count Result 277 k/mm3 (150-375); Red Blood Count 5.62 M/mm3 (4.6-6.20); Red Cell Distribution Width 11.8 % (11.5-14.5); White Blood Count 14.1 K/mm3 (4.5-10.0)
[2024-12-22 15:02] LABS: Anion Gap 13 mmol/L (4-12); Blood Urea Nitrogen 12 mg/dL (9-20); Calcium 9.4 mg/dL (8.4-10.2); Carbon Dioxide 26 mmol/L (22-30); Chloride 97 mmol/L (98-107); Estimated CRCL calculation 102 ml/min; Estimated Glomerular Filt Rate > 60; Glucose 111 mg/dL (65-110); Sodium 136 mmol/L (137-145)
--- NOTE | 2024-12-22 15:25 | P.PNAN_ITS ---
Anes - Initial Pre Proc Eval Procedure: Operation Date: 12/22/24 15:30 Proposed Procedures p Incision and Drainage Nalini-Rectal Abscess - Luis Kim MD Date/Time: 12/22/24 15:25 Surgeon: Luis Kim MD Pre Op Diagnosis: nalini rectal abscess Patient Data Age: 44 Gender: M Height: 1.68 m Weight: 95.65 kg Last Vital Signs Temp 36.6 C 12/22/24 13:40 Pulse 90 12/22/24 13:40 Resp 16 12/22/24 13:40 BP 136/88 12/22/24 13:40 Pulse Ox 100 12/22/24 13:40 O2 Del Method Room Air 12/22/24 13:40 Allergies Allergy/AdvReac Type Severity Reaction Status Date / Time No Known Allergies Allergy Verified 12/22/24 14:46 Home Medications ?Medication ?Instructions ?Recorded ?Confirmed ?Type triamcinolone acetonide 0.1 % 1 applic topical BID #80 grams 07/10/24 12/22/24 Rx topical cream chlorthalidone 25 mg tablet See Rx Instructions .Route 11/07/24 12/22/24 Rx .COMPLEX #90 tabs Laboratory Tests 12/22/24 13:54 WBC 14.1 H K/mm3 (4.5-10.0) RBC 5.62 M/mm3 (4.6-6.20) Hgb 17.5 g/dL (14.0-18.0) Hct 49.0 % (42.0-52.0) MCV 87.2 fl (80-100) MCH 31.1 pg (26-34) MCHC 35.7 g/dl (32-36) RDW 11.8 % (11.5-14.5) Plt Count 277 k/mm3 (150-375) MPV 10.3 fl (7.4-10.4) Immature Gran % (Auto) 0.4 % (0-0.5) Neut % (Auto) 70.6 % (45.5-73.1) Lymph % (Auto) 18.8 % (18.3-44.2) [place] % (Auto) 9.3 H % (2.6-8.5) Eos % (Auto) 0.6 % (0-4.4) Baso % (Auto) 0.3 % (0.2-1.2) Lymph # (Auto) 2.64 K/mm3 (0.9-3.2) [place] # (Auto) 1.3 H K/mm3 (0.1-0.6) Eos # (Auto) 0.1 K/mm3 (0-0.3) Baso # (Auto) 0.0 K/mm3 (0.0-0.1) Abs Immat Gran (auto) 0.06 H K/mm3 (0.00-0.031) Absolute Neuts (auto) 9.9 H K/mm3 (1.3-6.7) Absolute Nucleated RBC 0.000 K/mm3 (0.0-0.012) Nucleated RBC % 0.0 % (0.0-0.2) Sodium 136 L mmol/L (137-145) Potassium 3.0 L mmol/L (3.4-5.0) Chloride 97 L mmol/L (98-107) Carbon Dioxide 26 mmol/L (22-30) Anion Gap 13 H mmol/L (4-12) BUN 12 mg/dL (9-20) Creatinine 0.88 mg/dL (0.7-1.3) Estim Creat Clear Calc 102 ml/min Estimated GFR > 60 (59 - ) Glucose 111 H mg/dL (65-110) Calcium 9.4 mg/dL (8.4-10.2) Patient hx anesthesia problems: none Family hx anesthesia problems: none Results Review: All pre-operative results and documents have been reviewed as part of the pre- operative evaluation. [facility] Past Medical History Medical History (Updated 12/22/24 @ 15:27 by Edu Jones MD) Obesity TIMMY (obstructive sleep apnea) Dyshidrotic eczema Migraines Hypertension Surgical History Surgical History No pertinent past surgical history Family History Family History Sibling Diabetes mellitus Mother Hypertension Social History Social History Years smoked: 2 Smoking status: Former smoker Tobacco type: cigarettes Alcohol intake: former Alcohol use details: Once a month, if ever Substance use: current Substance use type: marijuana Last use: 12/21/24 Do You Feel Safe in your Home?: Yes Lack of Transportation: No Lack of Food: Never True Current Housing: I Have Housing Concerned About Future Housing: No Difficulty Paying Gas/Electric Bills: No Difficulty Paying for Meds: No Currently Unemployed: No Education: Trade/Vocational Certificate Difficulty w/ Childcare or Family Care: No Living arrangements: with family Occupation/Education: occupation Gender identity (if verbalized by the patient): Male Sexual Orientation (if Verbalized by the Patient): Straight or Heterosexual Spiritual care concerns: No Anes - Eval Final PreProcedure Day of Procedure 12/22/24 15:25 Patient weight: obese Heart: regular rate and rhythm Lungs: clear to auscultation Airway: Mallampati scale class III Neurological: alert and oriented Last oral intake: >/= 8 hours ASA classification: III Emergent: no Anesthetic plan: proceed Anesthesia type and monitoring: general ETT and standard monitoring Results Review: All pre-operative results and documents have been reviewed as part of the pre- operative evaluation. Informed Consent: The patient's anesthetic plan and its attendant risks and benefits were discussed with the patient/family/POA. Questions were solicited and answers provided to the satisfaction of the patient/family/POA.
[2024-12-22] MEDS: BUPIVACAINE/EPINEPHRINE 0.5% 50 ML VIAL 20 ML INFILTRATE (16:00)
[2024-12-22] MEDS: ceFAZolin 2 GM/D5W 50 ML 2 GM/50 ML BAG IVPB (16:05)
--- NOTE | 2024-12-22 17:21 | P.OP_ITS ---
Procedure Note - Detailed Date of Procedure 12/22/24 Pre-op Diagnosis [place] rectal abscess Post-op Diagnosis Same Procedure Performed Incision and drainage perirectal abscess Surgeon Luis Kim MD Test Borer Helper Trevor Anesthesia General Indications Patient has had progressively worsening rectal pain for over a week. He saws primary care physician this morning who noted a large perirectal abscess. I then saw the patient in the office and agreed. He is taken to surgery now for incision and drainage of complex perirectal abscess. He has never had a perirectal abscess previously. Findings Large left anterior quadrant perirectal abscess tracking a couple of cm towards the rectum and 4 cm posteriorly in a radial fashion Description of Procedure Patient was taken to surgery and induced into general anesthesia with endotracheal tube. He was then placed in prone june-knife position. The buttocks were taped apart. Prep and drape was carried out. A Suzanne anoscope was used to examine the in or canal. Looking at the dentate line, no sign of an internal opening was apparent. I then went ahead and sharply opened the abscess in its most fluctuant area. Foul-smelling purulent fluid came forth. I opened the incision slightly so that I could probe it with the suction. It did track both towards the rectum and away from the rectum and a somewhat radial fashion. There was no tracking anterior posteriorly. I again looked in the anal canal and saw no sign of an internal opening. There was quite a bit of bloody oozing from the wound. I irrigated it and then packed the wound with 1 in iodoform Nu Gauze. Xeroform gauze fluffs and ABDs were placed. Medipore tape was placed. Patient was returned to a supine position, awakened, and extubated. He then transferred to recovery in good condition. Estimated Blood Loss -20 Drains No Packing Yes (1 in iodoform Nu Gauze) Pathology None sent Complications None Condition Stable Disposition PACU [facility] Billing Surgery - Charge Forward: Surgery Billing (Incision and drainage complex perirectal abscess)
--- OUTSIDE RECORDS SUMMARY | 2024-12-22 18:17 | XMS_ITS | Clinical Summary ---
Author Organization [facility] Address [address] [place] [address] Care Team Providers Care Department Supervisor Name Role Phone Unavailable Primary Care Provider [...] Comments Blood Pressure 128/72 07/24/2024 8:27 PM OPTIMIZATION SPECIALIST Pulse 57 07/24/2024 8:27 PM OPTIMIZATION SPECIALIST Temperature 36.1 C (97 F) 07/24/2024 8:27 PM OPTIMIZATION SPECIALIST Respiratory Rate 18 07/24/2024 8:27 PM OPTIMIZATION SPECIALIST Oxygen Saturation 96% 07/24/2024 8:27 PM OPTIMIZATION SPECIALIST Inhaled Oxygen Concentration - - Weight 96.2 kg (212 lb 1.3 oz) 07/24/2024 5:34 P M OPTIMIZATION SPECIALIST Height 167.6 cm (5' 6 ) 07/24/2024 5:34 PM OPTIMIZATION SPECIALIST Body Mass Index 34.23 07/24/2024 5:34 PM OPTIMIZATION SPECIALIST Plan of Treatment Health Maintenance Due Date [...] patient's age to complete this topic Insurance [facility]
--- OUTSIDE RECORDS SUMMARY | 2024-12-22 18:17 | XMS_ITS | CONTINUITY OF CARE DOCUMENT ---
Author Name abril samuels Address Unknown Organization [facility] Address [address] [place] [address] [address] [place] [address] Phone [phone] Care Team Providers Care Social Science Analyst Name Role Phone Kurt OLVERA, Pablo Unavailable Kwame Ragland MD Unavailable INSURANCE PROVIDERS Payer name Policy type / Coverage type [place] red alliance party ID [facility] [id number]
--- OUTSIDE RECORDS SUMMARY | 2024-12-22 18:17 | XMS_ITS | Clinical Summary ---
Author Organization [facility] Address [address] [place] [address] Care Team Providers Care Ship Harbor Pilot Name Role Phone Kwame Ragland MD Primary Care Provider [phone] Source Comments [facility],non-owned Affiliates and Associated Physician Practices is amultiple site organization consisting of ambulatory clinics and hospital sitesin [place], [place], [place] and [place]. This disclosure is being madepursuant to the Care Everywhere program and may not contain all information available regarding this patient. Last updated 18.[facility] [employer] Allergies Active Allergy Reactions Criticality Noted Date [...] on file Legal Sex Male 5:26 AM MILITARY PERSONNEL SPECIALIST Gender Identity Not on file Sexual Orientation Not on file Last Filed Vital Signs Vital Sign Reading Time Taken Comments Blood Pressure 135/78 10/27/2019 9:49 AM MILITARY PERSONNEL SPECIALIST Pulse 88 10/27/2019 9:49 AM MILITARY PERSONNEL SPECIALIST Temperature 36.8 C (98.3 F) 10/27/2019 9:49 AM MILITARY PERSONNEL SPECIALIST Respiratory Rate 18 10/27/2019 9:49 AM MILITARY PERSONNEL SPECIALIST Oxygen Saturation 99% 10/27/2019 9:49 AM MILITARY PERSONNEL SPECIALIST Inhaled Oxygen Concentration - - Weight 99.8 [...] complete this topic Insurance ANTHEM Care Teams Ship Harbor Pilot Relationship Specialty Start Date End Date Kwame Ragland MD [address] [place] [address] PCP - General Internal Medicine 01/15/19
--- NOTE | 2024-12-22 18:42 | ADMGEN ---
This patient, Misbah Ng, was admitted to [facility] Surg Room 301-01. Patient/family oriented to hospital policies and general routines including ID bracelet, bed and alarms, visiting hours, pain management, procedures, bathroom and other care routines, personal items, smoking policy, room service/diet, and visiting hours. Information on how to activate the Rapid Response Team has been discussed. Patient/Family are encouraged to report perceived risks to care and to ask questions if they do not understand what they are told or what they should do.
[2024-12-22] MEDS: KCL 40 MEQ/D5/0.9% SOD CHL 1,000 ML 100 ML IV CONT (20:09)
[2024-12-22] MEDS: ENOXAPARIN 30 MG/0.3 ML SYRINGE SUB-Q (20:59)
[2024-12-22] MEDS: metroNIDAZOLE 500 MG/ISO 100ML 500 MG/100 ML BAG 100 MG IVPB (20:59)
[2024-12-23 03:54] VITALS: BP 136/95; PULSE 55; RESP 24; TEMP 36.4; O2SAT 99
[2024-12-23] MEDS: metroNIDAZOLE 500 MG/ISO 100ML 500 MG/100 ML BAG 100 MG IVPB ×2 (04:26→11:56)
[2024-12-23] MEDS: KCL 40 MEQ/D5/0.9% SOD CHL 1,000 ML 100 ML IV CONT (04:28)
[2024-12-23 06:18] LABS: Hematocrit 44.2 % (42.0-52.0); Hemoglobin 15.7 g/dL (14.0-18.0); Mean Corpuscular HGB Conc 35.5 g/dl (32-36); Mean Corpuscular Hemoglobin 31.6 pg (26-34); Mean Corpuscular Volume 88.9 fl (80-100); Mean Platelet Volume 10.7 fl (7.4-10.4); Platelet Count Result 284 k/mm3 (150-375); Red Blood Count 4.97 M/mm3 (4.6-6.20); Red Cell Distribution Width 11.8 % (11.5-14.5); White Blood Count 11.2 K/mm3 (4.5-10.0)
[2024-12-23 06:27] LABS: Anion Gap 12 mmol/L (4-12); Blood Urea Nitrogen 12 mg/dL (9-20); Calcium 8.8 mg/dL (8.4-10.2); Carbon Dioxide 23 mmol/L (22-30); Chloride 99 mmol/L (98-107); Estimated CRCL calculation 126 ml/min; Estimated Glomerular Filt Rate > 60; Glucose 138 mg/dL (65-110); Potassium 3.6 mmol/L (3.4-5.0); Sodium 134 mmol/L (137-145)
[2024-12-23] MEDS: ACETAMINOPHEN 500 MG TABLET PO (07:42)
[2024-12-23 08:00] VITALS: BP 139/86; PULSE 56; RESP 16; TEMP 35.7; O2SAT 99
[2024-12-23] MEDS: ENOXAPARIN 30 MG/0.3 ML SYRINGE SUB-Q (08:52)
[2024-12-23] MEDS: CHLORTHALIDONE 25 MG TABLET BY MOUTH (08:53)
[2024-12-23 10:19] VITALS: O2SAT 96
[2024-12-23 12:00] VITALS: BP 103/66; PULSE 58; RESP 16; TEMP 36.1; O2SAT 98
--- NOTE | 2024-12-23 12:57 | P.DS_ITS ---
DS: Admitting Diagnosis Discharge Date 12/23/24 Admitting Diagnosis Perirectal abscess DS: Discharge Diagnosis Discharge Diagnosis (1) Perirectal abscess: Code(s): K61.1 - Rectal abscess Status: Acute DS: Summary Hospital Course Reason for hospitalization: This is a 44-year-old male who was evaluated in our office by Dr. Kim as an outpatient on 12/22/2024 with 1 week history of perineal pain and swelling. He was found to have a perirectal abscess on exam and was then directly admitted for surgical management and IV antibiotics. Hospital Course: He underwent incision and drainage perirectal abscess on 12/22/[address] Kim. He was started on IV antibiotics. The wound was packed and he was monitored overnight. [place], [place] [address] and postop day 1 with down to 11,200. His pain and swelling improved significantly following surgery. Packing was removed postop day 1 and his abscess appeared adequately drained. Discussed with Dr. Kim postop day 1 and patient was stable for discharge with no oral antibiotics. He was discharged home with wound care instructions and follow up with Dr. Kim in the office. Status at Discharge Functional status at discharge: independent ambulation Overall status at discharge: patient is back to baseline Time Spent with Patient Time attestation: Total time spent providing and/or coordinating discharge services: Exam Const: General: comfortable and no acute distress Resp: Effort & Inspection: normal respiratory effort Auscultation: clear to auscultation bilaterally Cardio: Rate: regular rate Rhythm: regular rhythm GI: Inspection: non-distended GI Palp: Yes Soft to palpation, No Tenderness to palpation present (GI) and No Guarding due to palpation present (GI) Auscultation: normal bowel sounds Other: Perirectal abscess with induration improved, packing removed and no purulent drainage noted. Gauze dressing applied. Neuro: General: moves all extremities and no focal motor deficits Extrem: General: no edema Psych: Mental Status: mental status grossly normal Insight: Good insight present (Psych) DS: Data Data Completed and Pending Labs on day of discharge: Labs from last 24 hours 12/23/24 12/22/24 05:34 13:54 WBC 11.2 H 14.1 H RBC 4.97 5.62 Hgb 15.7 17.5 Hct 44.2 49.0 MCV 88.9 87.2 MCH 31.6 31.1 MCHC 35.5 35.7 RDW 11.8 11.8 Plt Count 284 277 MPV 10.7 H 10.3 Immature Gran % (Auto) 0.4 Neut % (Auto) 70.6 Lymph % (Auto) 18.8 [place] % (Auto) 9.3 H Eos % (Auto) 0.6 Baso % (Auto) 0.3 Lymph # (Auto) 2.64 [place] # (Auto) 1.3 H Eos # (Auto) 0.1 Baso # (Auto) 0.0 Abs Immat Gran (auto) 0.06 H Absolute Neuts (auto) 9.9 H Absolute Nucleated RBC 0.000 Nucleated RBC % 0.0 Sodium 134 L 136 L Potassium 3.6 3.0 L Chloride 99 97 L Carbon Dioxide 23 26 Anion Gap 12 13 H BUN 12 12 Creatinine 0.70 0.88 Estim Creat Clear Calc 126 102 Estimated GFR > 60 > 60 Glucose 138 H 111 H Calcium 8.8 9.4 Procedures/Treatments: Procedures Operation Date: 12/22/24 15:30 Actual Procedure Side Surgeon p Incision and Drainage Nalini-Rectal Abscess Left Luis Kim MD Discharge Plan Discharge Attending physician on discharge: Luis Kim Consulting providers: Eveline Daley; Jacky Pinon; Edu Jones Discharging Clinician: Eveline Daley Anticipated Discharge Date/Time: 12/23/24 13:02 Patient Disposition: Home Activity: may shower and other - see discharge instructions Diet: regular Wound Care Instructions: change dressing daily Discharge Instructions: * Call to schedule a follow up appointment with Dr. Kim in 2 weeks. [phone] * Apply gauze dressing daily to perirectal wound. Change daily and as needed if soiled * Do sitz baths daily and as needed Patient Instructions: Antibiotic Form Patient Language: Kittitian Stand Alone Forms: General Discharge Information Follow-up/Referrals: Luis Kim MD [Physician] - 2 Weeks Discharge Medications: New hydrocodone-acetaminophen 5-325 mg tablet 1 tablet PO Q6H PRN (Reason: pain) Qty: 7 0RF Continued chlorthalidone 25 mg tablet See Rx Instructions .ROUTE .COMPLEX Qty: 90 0RF Dose Instruction: TAKE 1 TABLET BY MOUTH EVERY DAY IN THE MORNING WITH FOOD Rx Instructions: TAKE 1 TABLET BY MOUTH EVERY DAY IN THE MORNING WITH FOOD Date of admission: 12/22/24 18:10 Primary Care Provider: Kaz Farrar Admitting Provider: Luis Kim Attending physician on admission: Luis Kim Condition: Stable Quality VTE Prophylaxis VTE prophylaxis: mechanical ordered
[2024-12-23] MEDS: oxyCODONE/ACETAMINOPHEN (*CRX) 5-325 MG TABLET 1 TABLET PO (14:22)
== END 2024-12-23 15:25 | disposition home or self-care (01) ==
LOC: ANH3MEDSUR 18:15
PROVIDERS: Admitting Provider Surgery; PCP Family Medicine; Visit Provider Surgery
PROC: (CPT 46040; principal; 2024-12-22 15:30)
DX: K61.1 Rectal abscess (principal); I10 Essential (primary) hypertension; G47.33 Obstructive sleep apnea (adult) (pediatric); Z87.891 Personal history of nicotine dependence; F12.90 Cannabis use, unspecified, uncomplicated; E66.9 Obesity, unspecified; Z68.34 Body mass index [BMI] 34.0-34.9, adult
CPT/HCPCS: 45005; 36415; 80048; 85025; 85027; 93005; A9270; G0378; G0379; J0330; J0690; J0696; J1100; J1171; J1650; J1836; J2003; J2250; J2405; J2704; J3010; J3480; J7120

== ENCOUNTER 2025-04-20 06:20 | Emergency (ER) | payer OTHER, SELFPAY ==
--- NOTE | ~2025-04-20 | CT_ITS ---
EXAMINATION: CT abdomen pelvis wo con DATE: 04/20/2025 07:38 INDICATION: Right flank pain. Low back pain. TECHNIQUE: Computed tomography (CT) of the abdomen and pelvis was performed without intravenous contr ast. The dose-length product was 327.87 mGy-cm. Automated exposure control and iterative reconstruction technique were employed. COMPARISON: CT dated 03/23/2020. FINDINGS: Lung bases unremarkable. Heart size normal. No significant pleural or pericardial effusion. The liver, spleen, pancreas, adrenal glands and right kidney are unremarkable. No renal/ureteral sto jose manuel or hydronephrosis. Normal appendix. No abnormal pelvic masses or fluid collections. Colonic diver ticulosis without evidence for diverticulitis. No abnormal free air or free fluid. No significant vas cular abnormality. No lymphadenopathy. There is a punctate 2 mm left renal stone. There are mild face t degenerative changes at L4-5 and L5-S1. IMPRESSION: 1. Nonobstructing left nephrolithiasis. 2: Mild lumbar spondylosis. Reviewed, dictated and finalized at location A.
--- OUTSIDE RECORDS SUMMARY | 2025-04-20 06:22 | XMS_ITS | Clinical Summary ---
Author Organization [facility] Address [address] [place] [address] Care Team Providers Care Job Specification Writer Name Role Phone Unavailable Primary Care Provider [...] Comments Blood Pressure 128/72 07/24/2024 8:27 PM PER DIEM PHYSICAL THERAPIST ASSISTANT Pulse 57 07/24/2024 8:27 PM PER DIEM PHYSICAL THERAPIST ASSISTANT Temperature 36.1 C (97 F) 07/24/2024 8:27 PM PER DIEM PHYSICAL THERAPIST ASSISTANT Respiratory Rate 18 07/24/2024 8:27 PM PER DIEM PHYSICAL THERAPIST ASSISTANT Oxygen Saturation 96% 07/24/2024 8:27 PM PER DIEM PHYSICAL THERAPIST ASSISTANT Inhaled Oxygen Concentration - - Weight 96.2 kg (212 lb 1.3 oz) 07/24/2024 5:34 P M PER DIEM PHYSICAL THERAPIST ASSISTANT Height 167.6 cm (5' 6) 07/24/2024 5:34 PM PER DIEM PHYSICAL THERAPIST ASSISTANT Body Mass Index 34.23 07/24/2024 5:34 PM PER DIEM PHYSICAL THERAPIST ASSISTANT Plan of Treatment Health Maintenance Due Date Last Done Comments Annual Physical 1983 Hepatitis C 1998 Hepatitis B Vaccines (1 of 3 - 19+ 3-dose series) 1999 HPV Vaccines (1 - 3-dose SCD M series) 2007 COVID-19 Vaccine (3 - 2023-2 5 season) 2024 06/26/2021, 05/29/2021 DTaP, Tdap and Td Vaccines ( 2 - Td or Tdap) 12/22/2025 12/23/2015 Meningococcal B Vaccine Aged Out No l [...] patient's age to complete this topic Insurance [facility]
[2025-04-20 06:30] VITALS: BP 137/92; PULSE 66; RESP 18; TEMP 36.9; O2SAT 100
[2025-04-20 07:08] LABS: Hematocrit 43.8 % (42.0-52.0); Hemoglobin 15.9 g/dL (14.0-18.0); Immature Granulocyte Percent A 0.3 % (0-0.5); Lymphocytes Absolute Auto 2.32 K/mm3 (0.9-3.2); Mean Corpuscular HGB Conc 36.3 g/dl (32-36); Mean Corpuscular Hemoglobin 31.5 pg (26-34); Mean Corpuscular Volume 86.9 fl (80-100); Nucleated Red Blood Cells Absolute Auto 0.000 K/mm3 (0.0-0.012); Nucleated Red Blood Cells Perc 0.0 % (0.0-0.2); Platelet Count Result 229 k/mm3 (150-375); Red Blood Count 5.04 M/mm3 (4.6-6.20); White Blood Count 6.2 K/mm3 (4.5-10.0)
[2025-04-20 07:13] LABS: Add Urine Microscopic? NO; Appearance Urine Clear (Clear); Glucose Urine UA Negative (Negative); Leukocyte Esterase Ur Negative LEU/UL (Negative); Nitrate Urine Negative (Negative); Specific Grav Ur 1.020 (1.001-1.035)
[2025-04-20 07:19] LABS: Alanine Aminotransferase 56 U/L (6-50); Albumin Level 4.0 g/dL (3.5-5.1); Alkaline Phosphatase 82 U/L (38-126); Anion Gap 10 mmol/L (4-12); Aspartate Amino Transferase 42 U/L (17-59); Bilirubin,Total 0.6 mg/dL (0.2-1.3); Blood Urea Nitrogen 10 mg/dL (9-20); Calcium 9.0 mg/dL (8.4-10.2); Carbon Dioxide 21 mmol/L (22-30); Chloride 104 mmol/L (98-107); Estimated CRCL calculation 118 ml/min; Estimated Glomerular Filt Rate > 60; Glucose 126 mg/dL (65-110); Lipase 178 U/L (23-300); Potassium 2.9 mmol/L (3.4-5.0); Sodium 135 mmol/L (137-145); Total Protein 7.0 g/dL (6.3-8.2)
[2025-04-20] MEDS: ORPHENADRINE CITRATE 100 MG TABLET.ER PO (07:45)
[2025-04-20] MEDS: LIDOCAINE 5% PATCH 1 PATCH TRANSDERM (07:46)
[2025-04-20] MEDS: KETOROLAC 15 MG/ML VIAL (*BKC) IV PUSH (07:46)
--- NOTE | 2025-04-20 08:22 | ED.GENADULT ---
HPI - General Adult General Chief complaint: Abdominal Pain Stated complaint: lower back wraps to front Time Seen by Provider: 04/20/25 07:17 History of Present Illness HPI narrative: Patient for for old gentleman presents emergency department chief complaint of low back and flank pain. The patient reports that he started having discomfort on reports he did change the brakes on his vehicle patient states that it hurts whenever he tries to get up whenever he is lying down the pain is not present patient reports no saddle anesthesia denies bowel or bladder incontinence denies footdrop Related Data Allergies Allergy/AdvReac Type Severity Reaction Status Date / Time crab Allergy Severe swelling, Verified 04/20/25 06:33 hives, itching Review of Systems Review of Systems: A 10 system review of systems was completed on the patient and is negative except for what is stated in the HPI. Nursing and ancillary documentation was reviewed. [facility] Past Medical History Medical History Obesity TIMMY (obstructive sleep apnea) Dyshidrotic eczema Migraines Hypertension Surgical History Surgical History History of incision and drainage 12/22/24 Incision and drainage perirectal abscess, Dr. Kim No pertinent past surgical history Family History Family History Sibling Diabetes mellitus Mother Hypertension Social History Social History Years smoked: 2 Smoking status: Never smoker Tobacco type: cigarettes Additional smoking assessment comments: pt only smokes marijuana Alcohol intake: former Drinks per week: 1 Alcohol use details: Once a month, if ever Substance use: current Substance use type: marijuana Other substance usage details: smoking marijuana daily; high usage Last use: 12/21/24 Do You Feel Safe in your Home?: Yes Lack of Transportation: No Lack of Food: Never True Current Housing: I Have Housing Concerned About Future Housing: No Difficulty Paying Gas/Electric Bills: No Difficulty Paying for Meds: No Currently Unemployed: No Education: Trade/Vocational Certificate Difficulty w/ Childcare or Family Care: No Living arrangements: with family Occupation/Education: occupation Gender identity (if verbalized by the patient): Male Sexual Orientation (if Verbalized by the Patient): Straight or Heterosexual Spiritual care concerns: No Exam Narrative: GENERAL: Well-appearing, well-nourished, and in no acute distress. HEAD: Normocephalic, atraumatic. EYES: PERRLA and EOMI. ENT: Nares clear, no rhinorrhea or epistaxis. Mucous membranes moist. NECK: Supple. CHEST: Clear to auscultation. No respiratory distress. HEART: Regular rate and rhythm. No murmur heard. Normal peripheral pulses. ABDOMEN: Soft, nontender, nondistended, normal active bowel sounds. EXTREMITIES: Normal range of motion. No edema. Back: Tenderness to palpation lumbar region of the spine SKIN: Warm, dry, no rash. NEURO: No focal deficits. Alert and oriented x3. No saddle anesthesia no footdrop PSYCH: Normal mood and affect. Course Vital Signs Vital signs: Vital Signs Temperature 36.9 C 04/20/25 06:30 Pulse Rate 66 04/20/25 06:30 Respiratory Rate 18 04/20/25 06:30 Blood Pressure 137/92 H 04/20/25 06:30 Pulse Oximetry 100 04/20/25 06:30 Oxygen Delivery Room Air 04/20/25 06:30 Temperature 36.9 C 04/20/25 06:30 Pulse Rate 66 04/20/25 06:30 Respiratory Rate 18 04/20/25 06:30 Blood Pressure 137/92 H 04/20/25 06:30 Pulse Oximetry 100 04/20/25 06:30 Oxygen Delivery Room Air 04/20/25 06:30 Medical Decision Making [facility] Narrative Medical decision making narrative: Differential diagnosis includes low back pain, ureterolithiasis, pyelonephritis, intra-abdominal infection, abdominal aortic aneurysm, Laboratory studies were obtained on the patient showed normal CBC CMP showed no acute abnormalities urinalysis showed no evidence UTI CT scan of the abdomen pelvis showed IMPRESSION: 1. Nonobstructing left nephrolithiasis. 2: Mild lumbar spondylosis. Patient is starting to feel better after receiving medications in the emergency department patient be discharged home to follow-up with his primary care provider Vital Signs Vital Signs: Vital Signs Temperature 36.9 C 04/20/25 06:30 Pulse Rate 66 04/20/25 06:30 Respiratory Rate 18 04/20/25 06:30 Blood Pressure 137/92 H 04/20/25 06:30 Pulse Oximetry 100 04/20/25 06:30 Oxygen Delivery Room Air 04/20/25 06:30 Temperature 36.9 C 04/20/25 06:30 Pulse Rate 66 04/20/25 06:30 Respiratory Rate 18 04/20/25 06:30 Blood Pressure 137/92 H 04/20/25 06:30 Pulse Oximetry 100 04/20/25 06:30 Oxygen Delivery Room Air 04/20/25 06:30 Lab Data 04/20/25 06:59 04/20/25 06:59 Labs: Lab Results 04/20/25 Range/Units 06:59 WBC 6.2 (4.5-10.0) K/mm3 RBC 5.04 (4.6-6.20) M/mm3 Hgb 15.9 (14.0-18.0) g/dL Hct 43.8 (42.0-52.0) % MCV 86.9 (80-100) fl MCH 31.5 (26-34) pg MCHC 36.3 H (32-36) g/dl RDW 12.5 (11.5-14.5) % Plt Count 229 (150-375) k/mm3 MPV 10.7 H (7.4-10.4) fl Immature Gran % (Auto) 0.3 (0-0.5) % Neut % (Auto) 52.8 (45.5-73.1) % Lymph % (Auto) 37.2 (18.3-44.2) % Collin % (Auto) 7.4 (2.6-8.5) % Eos % (Auto) 1.8 (0-4.4) % Baso % (Auto) 0.5 (0.2-1.2) % Lymph # (Auto) 2.32 (0.9-3.2) K/mm3 [place]lin # (Auto) 0.5 (0.1-0.6) K/mm3 Eos # (Auto) 0.1 (0-0.3) K/mm3 Baso # (Auto) 0.0 (0.0-0.1) K/mm3 Abs Immat Gran (auto) 0.02 (0.00-0.031) K/mm3 Absolute Neuts (auto) 3.3 (1.3-6.7) K/mm3 Absolute Nucleated RBC 0.000 (0.0-0.012) K/mm3 Nucleated RBC % 0.0 (0.0-0.2) % Sodium 135 L (137-145) mmol/L Potassium 2.9 L (3.4-5.0) mmol/L Chloride 104 (98-107) mmol/L Carbon Dioxide 21 L (22-30) mmol/L Anion Gap 10 (4-12) mmol/L BUN 10 (9-20) mg/dL Creatinine 0.76 (0.7-1.3) mg/dL Estim Creat Clear Calc 118 ml/min Estimated GFR > 60 (59 - ) Glucose 126 H (65-110) mg/dL Calcium 9.0 (8.4-10.2) mg/dL Total Bilirubin 0.6 (0.2-1.3) mg/dL AST 42 (17-59) U/L ALT 56 H (6-50) U/L Alkaline Phosphatase 82 (38-126) U/L Total Protein 7.0 (6.3-8.2) g/dL Albumin 4.0 (3.5-5.1) g/dL Lipase 178 (23-300) U/L Urine Color Yellow (Yellow) Urine Appearance Clear (Clear) Urine pH 6.5 (5.0-9.0) Ur Specific [place] 1.020 (1.001-1.035) Urine Protein Negative (Negative) mg/dL Urine Glucose (UA) Negative (Negative) mg/dL Urine Ketones Negative (Negative) mg/dL Ur Blood (Man) Negative (Negative) Urine Nitrate Negative (Negative) Urine Bilirubin Negative (Negative) Urine Urobilinogen 0.2 (<2.0) mg/dL Leukocyte Esterase Rfl Negative (Negative) BARRY/UL Discharge Plan Discharge Clinical Impression: Low back pain, Acute flank pain Patient Disposition: Home Condition: Stable Instructions: Antibiotic Form, Acute Low Back Pain (ED), Flank Pain (ED) Patient Language: Greek Prescriptions: New lidocaine [Lidoderm] 5 % adhesive patch,medicated 1 patch topical DAILY Qty: 15 0RF Rx Instructions: leave on most painful area for up to 12 hrs diclofenac potassium 50 mg tablet 50 mg PO TID PRN (Reason: pain) Qty: 30 0RF cyclobenzaprine 10 mg tablet 10 mg PO TID PRN (Reason: muscle spasm) Qty: 21 0RF prednisone 20 mg tablet 40 mg PO DAILY 5 Days Qty: 10 0RF No Action chlorthalidone 25 mg tablet See Rx Instructions .ROUTE .COMPLEX Qty: 90 0RF Dose Instruction: TAKE 1 TABLET BY MOUTH EVERY DAY IN THE MORNING WITH FOOD Rx Instructions: TAKE 1 TABLET BY MOUTH EVERY DAY IN THE MORNING WITH FOOD triamcinolone acetonide 0.1 % cream See Rx Instructions .ROUTE .COMPLEX Qty: 80 0RF Dose Instruction: APPLY TOPICALLY TO THE AFFECTED AREA TWICE DAILY Rx Instructions: APPLY TOPICALLY TO THE AFFECTED AREA TWICE DAILY sumatriptan succinate 100 mg tablet See Rx Instructions PO .COMPLEX Qty: 9 0RF Rx Instructions: take 1 tab at onset of headache; if no relief, may repeat 1 tab after at least 2 hrs; max = 2 tabs/24 hrs PO albuterol sulfate 90 mcg/actuation HFA aerosol inhaler See Rx Instructions .ROUTE .COMPLEX Qty: 6.7 0RF Dose Instruction: INHALE 1 PUFF BY MOUTH EVERY 4 HOURS NEEDED DIRECTED Rx Instructions: INHALE 1 PUFF BY MOUTH EVERY 4 HOURS NEEDED DIRECTED Follow-up/Referrals: Kaz Farrar MD [Primary Care Provider] - Time of Disposition: 08:45
[2025-04-20 08:39] VITALS: BP 99/83; PULSE 68; RESP 15; TEMP 36.4; O2SAT 97
[2025-04-20] MEDS: dexAMETHasone SOD PHOS INJ 10 MG/ML 1 ML VIAL IV PUSH (09:01)
[2025-04-20 09:14] VITALS: BP 99/82; PULSE 65; RESP 18; TEMP 36.7; O2SAT 98
== END 2025-04-20 09:19 | disposition home or self-care (01) ==
PROVIDERS: Student in an Organized Health Care Education/Training Program; Emergency Provider Emergency Medicine; PCP Family Medicine
DX: M54.50 Low back pain, unspecified (principal); I10 Essential (primary) hypertension; E66.9 Obesity, unspecified; Z68.35 Body mass index [BMI] 35.0-35.9, adult; G47.33 Obstructive sleep apnea (adult) (pediatric); Z79.899 Other long term (current) drug therapy
CPT/HCPCS: 36415; 74176; 80053; 81003; 83690; 85025; 96374; 96375; 99284; A9270; J1100; J1885

== ENCOUNTER 2025-04-22 13:11 | Emergency (ER) | payer OTHER, SELFPAY ==
--- OUTSIDE RECORDS SUMMARY | 2025-04-22 13:13 | XMS_ITS | Clinical Summary ---
Author Organization [facility] Address [address] [place] [id number] Care Team Providers Care Sonographer Name Role Phone Unavailable Primary Care Provider [...] Comments Blood Pressure 128/72 07/24/2024 8:27 PM CHIEF UNDERWRITER Pulse 57 07/24/2024 8:27 PM CHIEF UNDERWRITER Temperature 36.1 C (97 F) 07/24/2024 8:27 PM CHIEF UNDERWRITER Respiratory Rate 18 07/24/2024 8:27 PM CHIEF UNDERWRITER Oxygen Saturation 96% 07/24/2024 8:27 PM CHIEF UNDERWRITER Inhaled Oxygen Concentration - - Weight 96.2 kg (212 lb 1.3 oz) 07/24/2024 5:34 P M CHIEF UNDERWRITER Height 167.6 cm (5' 6) 07/24/2024 5:34 PM CHIEF UNDERWRITER Body Mass Index 34.23 07/24/2024 5:34 PM CHIEF UNDERWRITER Plan of Treatment Health Maintenance Due Date [...]
[2025-04-22 13:23] VITALS: BP 149/97; PULSE 71; RESP 20; TEMP 36.7; O2SAT 98
--- NOTE | 2025-04-22 13:26 | ECG_ITS ---
Test Date: 2025-04-22 13:28:56 Measurements Intervals Saline Rate: 69 P: 11 HI: 136 QRS: 31 QRSD: 101 T: 2 QT: 353 QTc: 379 Interpretive Statements SINUS RHYTHM CONSIDER INFERIOR INFARCT, AGE INDETERMINATE BASELINE ARTIFACT- I, II, III, AVR, AVL, AVF, V1-V6 ABNORMAL ECG Compared to ECG 12/22/2024 14:03:35 No significant changes Electronically Signed On 04-22-2025 14:35:29 CDT by Jacky Pinon D.O.
--- NOTE | 2025-04-22 15:49 | PC.NURSE ---
No answer when called for MSE.
== END 2025-04-22 16:16 | disposition left against medical advice (07) ==
LOC: ANHED 16:10
PROVIDERS: Emergency Provider Emergency Medicine; PCP Family Medicine
DX: M54.9 Dorsalgia, unspecified (principal); R07.9 Chest pain, unspecified
CPT/HCPCS: 93005; 99199